=== PATIENT | male | born 1985 | race Caucasian/White ===

== ENCOUNTER 2017-11-06 20:32 | Emergency (ER) | payer SELFPAY ==
[2017-11-06] MEDS ORDERED: THIAMINE HCL(*) 200 MG/2 ML IN 100 MG, FOLIC ACID(*) 50 MG/10 ML INJ 1 MG, MULTIVITAMIN... IV ONE (20:48)
[2017-11-06 21:05] VITALS: BP 142/96
[2017-11-06 21:08] LABS: PLATELET COUNT, AUTOMATED 269 K/uL (150-450)
--- NOTE | 2017-11-06 22:13 | ER Report ---
History and Physical Time Seen By MD: 21:00 Hx. of Stated Complaint: "I JUST WANT YOU TO KEEP ME ALIVE". WOULD LIKE TO DETOX FROM ALCOHOL. HPI/ROS Daily drinker since age 26. Drinks about 12 beers a day. Sober for 5 days at a time only. Never had withdrawl before. Usually does self detox. Has a family history of substance abuse and mental health issues. Denies illicit drug use. No SI/HI Remainder of the 14 system rev: Yes Allergies: Coded Allergies: Penicillins (Verified Allergy, Unknown, 11/06/17) Home Meds No Active Prescriptions or Reported Meds Reviewed Nurses Notes: Yes Old Medical Records Reviewed: Yes Hx Smoking: Yes Smoking Status: Current: Every Day Smoker Hx Alcohol Use: Yes Constitutional Vital Sign - Last 24 Hours 11/06/17 11/06/17 20:35 21:05 Temp 97.9 Pulse 93 Resp 18 B/P (MAP) 159/107 142/96 (111) Pulse Ox 97 O2 Delivery Room Air Physical Exam General Appearance: The patient is alert, has no immediate need for airway protection and no current signs of toxicity. Eyes: Pupils equal and round no injection. Respiratory: Chest is non tender, lungs are clear to auscultation. Cardiac: regular rate and rhythm Gastrointestinal: Abdomen is soft and non tender, no masses, bowel sounds normal. Skin: No rashes or lesions. DIFFERENTIAL DIAGNOSIS: After history and physical exam differential diagnosis was considered for intoxication, overdose, alcohol withdrawl Medical Decision Making Data Points Result Diagram: 11/06/17205411/06/172054 Laboratory Hematology Test 11/06/17 20:49 11/06/17 20:55 Urine Color Yellow Urine Clarity Clear Urine pH 7.0 pH (4.8-9.5) Urine Specific [place] 1.006 Urine Protein 30 mg/dL (NEGATIVE) Urine Glucose (UA) Negative mg/dL (NEGATIVE) Urine Ketones Negative mg/dL (NEGATIVE) Urine Blood Small (NEGATIVE) Urine Nitrite Negative (NEGATIVE) Urine Bilirubin Negative (NEGATIVE) Urine Urobilinogen Negative mg/dL (0.2-1.9) Urine Leukocyte Esterase Negative (NEGATIVE) Urine RBC 1 /HPF (0-2/HPF) Urine WBC <1 /HPF (0-5/HPF) Urine Squamous Epithelial Cells None /LPF (</=FEW) Urine Bacteria Negative /HPF (NONE-FEW) Urine Mucus None /HPF (NONE-FEW) Urine Opiates Screen Negative Urine Barbiturates Screen Negative Ur Tricyclic Antidepressants Screen Negative Urine Phencyclidine Screen Negative Urine Amphetamines Screen Negative Urine Benzodiazepines Screen Negative Urine Cocaine Screen Negative Urine Cannabinoids Screen Positive Red Blood Count 5.33 M/uL (4.00-5.60) Mean Corpuscular Volume 93.7 fL (80.0-96.0) Mean Corpuscular Hemoglobin 33.0 pg (26.0-33.0) Mean Corpuscular Hemoglobin Concent 35.3 g/dL (32.0-36.0) Red Cell Distribution Width 12.9 % (11.5-14.5) Mean Platelet Volume 7.5 fL (7.2-11.1) Neutrophils (%) (Auto) 67.7 % (39.4-72.5) Lymphocytes (%) (Auto) 20.9 % (17.6-49.6) Monocytes (%) (Auto) 10.1 % (4.1-12.4) Eosinophils (%) (Auto) 0.2 % (0.4-6.7) Basophils (%) (Auto) 1.1 % (0.3-1.4) Nucleated RBC Relative Count (auto) 0.0 /100WBC Neutrophils # (Auto) 6.2 K/uL (2.0-7.4) Lymphocytes # (Auto) 1.9 K/uL (1.3-3.6) Monocytes # (Auto) 0.9 K/uL (0.3-1.0) Eosinophils # (Auto) 0.0 K/uL (0.0-0.5) Basophils # (Auto) 0.1 K/uL (0.0-0.1) Nucleated RBC Absolute Count (auto) 0.00 K/uL Sodium Level 138 mmol/L (137-145) Potassium Level 3.7 mmol/L (3.5-5.0) Chloride Level 95 mmol/L (98-107) Carbon Dioxide Level 27 mmol/L (22-30) Blood Urea Nitrogen 5 mg/dl (9-21) Creatinine 0.70 mg/dl (0.66-1.25) Glomerular Filtration Rate Calc > 60.0 Random Glucose 103 mg/dl (75-110) Calcium Level 10.2 mg/dl (8.4-10.2) Magnesium Level 2.1 mg/dl (1.7-2.2) Total Bilirubin 0.7 mg/dl (0.2-1.3) Aspartate Amino Transf (AST/SGOT) 35 U/L (0-35) Alanine Aminotransferase (ALT/SGPT) 29 U/L (0-56) Alkaline Phosphatase 69 U/L (0-126) Total Protein 8.6 gm/dl (6.3-8.2) Albumin 5.0 g/dl (3.5-5.0) Salicylates Level < 10 mg/L Salicylate Last Dose Date unknown Acetaminophen Level < 10 ug/ml Serum Alcohol 135 mg/dl Chemistry Test 11/06/17 20:49 11/06/17 20:55 Urine Color Yellow Urine Clarity Clear Urine pH 7.0 pH (4.8-9.5) Urine Specific [place] 1.006 Urine Protein 30 mg/dL (NEGATIVE) Urine Glucose (UA) Negative mg/dL (NEGATIVE) Urine Ketones Negative mg/dL (NEGATIVE) Urine Blood Small (NEGATIVE) Urine Nitrite Negative (NEGATIVE) Urine Bilirubin Negative (NEGATIVE) Urine Urobilinogen Negative mg/dL (0.2-1.9) Urine Leukocyte Esterase Negative (NEGATIVE) Urine RBC 1 /HPF (0-2/HPF) Urine WBC <1 /HPF (0-5/HPF) Urine Squamous Epithelial Cells None /LPF (</=FEW) Urine Bacteria Negative /HPF (NONE-FEW) Urine Mucus None /HPF (NONE-FEW) Urine Opiates Screen Negative Urine Barbiturates Screen Negative Ur Tricyclic Antidepressants Screen Negative Urine Phencyclidine Screen Negative Urine Amphetamines Screen Negative Urine Benzodiazepines Screen Negative Urine Cocaine Screen Negative Urine Cannabinoids Screen Positive White Blood Count 9.2 k/uL (4.5-11.0) Red Blood Count 5.33 M/uL (4.00-5.60) Hemoglobin 17.6 g/dL (14.0-18.0) Hematocrit 50.0 % (42.0-52.0) Mean Corpuscular Volume 93.7 fL (80.0-96.0) Mean Corpuscular Hemoglobin 33.0 pg (26.0-33.0) Mean Corpuscular Hemoglobin Concent 35.3 g/dL (32.0-36.0) Red Cell Distribution Width 12.9 % (11.5-14.5) Platelet Count 269 K/uL (150-450) Mean Platelet Volume 7.5 fL (7.2-11.1) Neutrophils (%) (Auto) 67.7 % (39.4-72.5) Lymphocytes (%) (Auto) 20.9 % (17.6-49.6) Monocytes (%) (Auto) 10.1 % (4.1-12.4) Eosinophils (%) (Auto) 0.2 % (0.4-6.7) Basophils (%) (Auto) 1.1 % (0.3-1.4) Nucleated RBC Relative Count (auto) 0.0 /100WBC Neutrophils # (Auto) 6.2 K/uL (2.0-7.4) Lymphocytes # (Auto) 1.9 K/uL (1.3-3.6) Monocytes # (Auto) 0.9 K/uL (0.3-1.0) Eosinophils # (Auto) 0.0 K/uL (0.0-0.5) Basophils # (Auto) 0.1 K/uL (0.0-0.1) Nucleated RBC Absolute Count (auto) 0.00 K/uL Glomerular Filtration Rate Calc > 60.0 Calcium Level 10.2 mg/dl (8.4-10.2) Magnesium Level 2.1 mg/dl (1.7-2.2) Total Bilirubin 0.7 mg/dl (0.2-1.3) Aspartate Amino Transf (AST/SGOT) 35 U/L (0-35) Alanine Aminotransferase (ALT/SGPT) 29 U/L (0-56) Alkaline Phosphatase 69 U/L (0-126) Total Protein 8.6 gm/dl (6.3-8.2) Albumin 5.0 g/dl (3.5-5.0) Salicylates Level < 10 mg/L Salicylate Last Dose Date unknown Acetaminophen Level < 10 ug/ml Serum Alcohol 135 mg/dl Toxicology Test 11/06/17 20:49 11/06/17 20:55 Urine Opiates Screen Negative Urine Barbiturates Screen Negative Ur Tricyclic Antidepressants Screen Negative Urine Phencyclidine Screen Negative Urine Amphetamines Screen Negative Urine Benzodiazepines Screen Negative Urine Cocaine Screen Negative Urine Cannabinoids Screen Positive Salicylates Level < 10 mg/L Salicylate Last Dose Date unknown Acetaminophen Level < 10 ug/ml Serum Alcohol 135 mg/dl Urinalysis Test 11/06/17 20:49 Urine Color Yellow Urine Clarity Clear Urine pH 7.0 pH (4.8-9.5) Urine Specific [place] 1.006 Urine Protein 30 mg/dL (NEGATIVE) Urine Glucose (UA) Negative mg/dL (NEGATIVE) Urine Ketones Negative mg/dL (NEGATIVE) Urine Blood Small (NEGATIVE) Urine Nitrite Negative (NEGATIVE) Urine Bilirubin Negative (NEGATIVE) Urine Urobilinogen Negative mg/dL (0.2-1.9) Urine Leukocyte Esterase Negative (NEGATIVE) Urine RBC 1 /HPF (0-2/HPF) Urine WBC <1 /HPF (0-5/HPF) Urine Squamous Epithelial Cells None /LPF (</=FEW) Urine Bacteria Negative /HPF (NONE-FEW) Urine Mucus None /HPF (NONE-FEW) ED Course/Re-evaluation ED Course Self presents to the emergency Department in need of detox for alcohol. Daily drinker. Last drank prior to arrival in the ED. Has tried to self detox previously. No current tremors or impending withdrawl. Denies SI/HI. Speoke with Dr. Dumas who will admit the patient. Decision to Disposition Date: Nov 06, 2017 Decision to Disposition Time: 22:13 Depart Departure Latest Vital Signs Vital Signs Date Time Temp Pulse Resp B/P (MAP) Pulse Ox O2 Delivery O2 Flow Rate FiO2 11/06/17 21:05 142/96 (111) 11/06/17 20:35 97.9 93 18 97 Room Air Impression: Primary Impression: Alcohol abuse Condition: Improved Disposition: Admitted from ER New Scripts No Active Prescriptions or Reported Meds MONICA JOAQUIN MD Nov 06, 2017 22:13
== END 2017-11-06 22:28 ==
LOC: ER 21:21
DX: F10.120 Alcohol abuse with intoxication, uncomplicated (principal); Y90.6 Blood alcohol level of 120-199 mg/100 ml
CPT/HCPCS: 80305; 80320; 80329; 81001; 83735; 84443; 85025; 96365; 96366; 99285; J3411; J3475; J7030; 82040; 82247; 82310; 82374; 82435; 82565; 82947; 84075; 84132; 84155; 84295; 84450; 84460; 84520

== ENCOUNTER 2017-11-06 22:05 | Inpatient (IN) | payer SELFPAY ==
[~2017-11-06] VITALS: Ht 190.5 cm; Wt 70.3 kg
[2017-11-06] MEDS ORDERED: MAG HYD/AL HYD/SIMETH 30ML UDC PO PRN (22:15)
[2017-11-06 23:00] VITALS: BP 140/98
[2017-11-06] MEDS: DIAZEPAM 10 MG TAB PO PRN (23:06)
[2017-11-07] MEDS: DIAZEPAM 10 MG TAB PO PRN ×4 (00:12→22:48)
[2017-11-07 04:31] VITALS: BP 123/91
[2017-11-07] MEDS: FOLIC ACID 1 MG TAB PO SCH (08:32)
[2017-11-07] MEDS: MULTIVITAMINS TAB PO SCH (08:32)
[2017-11-07] MEDS: THIAMINE HCL 100 MG TAB PO SCH (08:32)
[2017-11-07 09:00] VITALS: BP 121/93
[2017-11-07] MEDS ORDERED: NICOTINE CARTRIDGE 1 EA PO PRN (09:05)
[2017-11-07 12:40] VITALS: BP 121/92
[2017-11-07] MEDS: NICOTINE INH SYSTEM 10 MG/INH INH PRN ×2 (13:39→16:40)
[2017-11-07 16:30] VITALS: BP 134/90
--- NOTE | 2017-11-07 17:50 | HISTORY AND PHYSICAL ---
DATE OF ADMISSION: November 06, 2017 Patient was seen at approximately 0800 hours on November 07, 2017 concerning this dictation. PRESENTING PROBLEM/CHIEF COMPLAINT Patient presenting with alcohol to the ER on a voluntary basis for help with alcohol withdrawal. HISTORY OF PRESENT ILLNESS This is a pleasant 32-year-old male interacting well with this provider and treatment team staff. Patient under the influence of diazepam, given for alcohol withdrawal throughout the night. When asked why patient wants to quit drinking now, patient reports "I am afraid it is going to kill me." Patient reports drinking mostly beer in large quantities for the last several years on a daily basis. Patient has experienced tremors in the past. These seem to fall short of delirium when trying to quit. Patient denies a history of seizures. Patient states that specific stressors include "lots of things related to alcohol." Patient reports two relatively recent breakups which have been hard for him, but patient does not seem overly concerned about. Patient denies any other symptoms of psychiatric concern other than ongoing problems with alcohol. MENTAL HEALTH HISTORY Patient has never been an inpatient in a psychiatric unit before. He has never attended rehab. Patient has been to in the past, is not going now. He has no other formal outpatient treatment and patient has no history of suicidal ideation or attempt. FAMILY PSYCHIATRIC HISTORY Patient reports alcoholism on his father's side "all the way down the line." Patient reports his great grandfather, believed to be on his father's side, did take his own life before the patient was born. Patient denies any other known psychiatric illness in the family. PAST MEDICAL HISTORY Patient allergic to PENICILLIN. He has had some structural damage in a machinery accident involving his left first digit. Patient not on any medications and has no other medical complaints. SOCIAL HISTORY Patient was born in [place], raised in [facility]. Patient's parents were together at the time of his . They when he was approximately 6 years old. Patient has one full sibling brother and one half brother. Patient reports he does not get along with his stepfather and he does believe there was some neglect growing up. Denies any outright physical or sexual abuse. Patient did graduate from high school, has a four year degree in [employer]. Patient has never , has no children. He has no significant other currently. Patient lives with his brother. 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 LEGAL HISTORY Patient has legal history significant for DUI times one. SUBSTANCE ABUSE HISTORY History does include cannabis. 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 Denies any other substance abuse history. PHYSICAL EXAMINATION GENERAL: Please see emergency room note. Notable for a cooperative 32-year- old male, initially cursing, but patient redirectable. VITAL SIGNS: At the time of admission, temperature 97.9, pulse 93, respiratory rate 18, blood pressure 159/107, pulse oximetry 97 on room air. LABORATORY DATA CBC unremarkable. CMP overall unremarkable as well. TSH 1.61. Urinalysis did show small urine blood and protein, and urine protein present, otherwise unremarkable. Toxicology screen positive for cannabinoids, with a serum alcohol level of 135 at the time of admission. MENTAL STATUS EXAMINATION GENERAL APPEARANCE, BEHAVIOR AND ATTITUDE: This is a somewhat obtunded- appearing 32-year-old male, being treated with diazepam throughout the night for alcohol withdrawal. Patient cooperative, making [id number] eye contact. No bizarre mannerisms or tics. SPEECH: Slurred slightly. MOOD: Described as frustrated over alcohol use disorder and feeling physically crappy. AFFECT: Mildly constructed and mood congruent. THOUGHT PROCESSES: Logical, goal directed. Patient continuing to verbalize a desire to stop alcohol use. No loose associations or flight of ideas. THOUGHT CONTENT: Free of auditory or visual hallucinations, ideas of reference , thought broadcastings, delusions, obsessions, compulsions. Patient adamantly denying suicidal or homicidal ideation. SENSORIUM: Clear. COGNITION: Alert and oriented to person, place, time and situation. MEMORY: Immediate, recent and remote estimated intact. INTELLIGENCE: Average based on interview. INSIGHT AND JUDGMENT: Considered grossly intact in the absence of alcohol use. Patient did present voluntarily for alcohol treatment. ASSESSMENT This is a pleasant 32-year-old male who has had minimal exposure to alcohol treatment throughout his life of addiction to alcohol. Patient using cannabis as well. Will encourage abstinence from both substances. Will treat alcohol withdrawal with diazepam per [facility] protocol and continue to evaluate. DIAGNOSES PER DSM-V Alcohol intoxication. Alcohol withdrawal. Alcohol use disorder, severe. Cannabis use disorder, moderate. Social stressors related to alcohol use disorder. PLAN 1. Admit to the unit. 2. Necessary precautions to be implemented. 3. Patient will participate in individual and group therapy. 4. Medications will be administered, titrated accordingly. 5. Collateral information to be obtained as necessary. 6. Estimated length of stay three to five days. MTDD
[2017-11-07 20:22] VITALS: BP 118/82
[2017-11-08 06:18] VITALS: BP 120/90
[2017-11-08] MEDS: FOLIC ACID 1 MG TAB PO SCH (08:02)
[2017-11-08] MEDS: MULTIVITAMINS TAB PO SCH (08:02)
[2017-11-08] MEDS: THIAMINE HCL 100 MG TAB PO SCH (08:02)
[2017-11-08 10:30] VITALS: BP 108/62
[2017-11-08] MEDS: NICOTINE INH SYSTEM 10 MG/INH INH PRN ×4 (10:35→21:13)
--- NOTE | 2017-11-08 12:27 | BHS Progress Note ---
[facility] - Subjective Progress Notes Subjective Patient continues to improve, and alcohol withdrawal is nearing completion. Will have trial of trazodone tonight, and prepare for likely discharge tomorrow evening. Will have AA visit today, and set up outpatient appointments. Suicidal Ideation: None Homicidal Ideation: None [facility] - Objective Physical Exam Vital Signs Vital Signs Date Time Temp Pulse Resp B/P (MAP) Pulse Ox O2 Delivery O2 Flow Rate FiO2 11/08/17 10:30 99.0 82 16 108/62 (77) 97 Room Air Muscle Strength and Tone: WNL Gait and Station: Steady [facility] Medications Reviewed: Side Effects, Benefits of Medication, Risks Allergies Reviewed: Yes Mental Status Exam General Appearance: Casual, Well Groomed, Good Eye Contact, Cooperative, Polite , Good Interaction, No Tearful, No Psychomotor Agitation, No Psychomotor Retardation, No Bizarre Mannerisms, No Tics Speech: Clear, Spontaneous, Normal Rate, Normal Rhythm, Normal Volume, Normal Tone, No Garbled, No Rambling, No Inappropriate Mood: Euthymic Affect: Full and Appropriate, Calm, No Flat, No Withdrawn, No Tearful, No Anxious, No Agitated Thought Process: Organized, Logical, Goal Directed, No Loose Associations, No Flight of Ideas Thought Content: No Suicidal Ideation, No Homicidal Ideation, No Delusions, No Auditory Halllucinations, No Visual Hallucinations, No Thought Broadcasting, No Ideas of Reference, No Obsessions, No Compulsions Sensorium: Clear Cognition: Alert & Oriented-Person, Alert & Oriented-Place, Alert & Oriented- Time, Ldvkw-Vofebruh-Thgmujuej Memory: Immediate, Recent, Remote Intelligence: Average Insight Judgment: Fair (in absence of alcohol) [facility] Assessment and Plan Eydn-um-Lssj Encounter Date: Nov 08, 2017 Iidw-io-Cmdt Encounter Time: 11:00 [facility] Plan: Necessary Precautions, Individual/Group Therapy, Admin/Titrate Meds, Educate Patient Tobacco Medications: Started Multpiple Antipsychotics Used: No Problems: (1) Alcohol use disorder, severe, in controlled environment Status: Chronic (2) Alcohol withdrawal Condition 1. start trazodone 100mg QHS. 2. likely discharge to home tomorrow afternoon. Problem Qualifiers (1) Alcohol withdrawal: Complication of substance-induced condition: uncomplicated Qualified Codes: F10.230 - Alcohol dependence with withdrawal, uncomplicated MARISA WADE MD Nov 08, 2017 12:27
[2017-11-08 14:30] VITALS: BP 108/64
[2017-11-08 18:30] VITALS: BP 118/68
[2017-11-08] MEDS ORDERED: traZODone HCL 50 MG TAB PO SCH (21:00)
[2017-11-08 21:19] VITALS: BP 123/96
[2017-11-09] MEDS: THIAMINE HCL 100 MG TAB PO SCH (08:16)
[2017-11-09] MEDS: FOLIC ACID 1 MG TAB PO SCH (08:16)
[2017-11-09] MEDS: MULTIVITAMINS TAB PO SCH (08:16)
[2017-11-09] MEDS ORDERED: NIC10R INH (09:28)
[2017-11-09] MEDS ORDERED: TRAZ-163 PO (09:29)
--- NOTE | 2017-11-09 09:30 | BHS Progress Note ---
S - Subjective Progress Notes Subjective "I would like to get set up with a counselor to talk with a couple times a week. 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 I'm ready to get my life back on track." Desires to stay sober, reports father lives in half way house, father with history of 9 DUI'S, fearful of drinking again DUI 2016 Denies urge to drink, "I'm terrified of it." Suicidal Ideation: None Homicidal Ideation: None S - Objective Physical Exam Vital Signs Vital Signs Date Time Temp Pulse Resp B/P (MAP) Pulse Ox O2 Delivery O2 Flow Rate FiO2 11/08/17 21:19 97.9 83 123/96 (105) 96 Room Air 11/08/17 18:30 16 Allergies Coded Allergies Penicillins (Verified Allergy, Unknown, 11/06/17) Muscle Strength and Tone: WNL Gait and Station: Steady [facility] Medications Reviewed: Side Effects, Benefits of Medication, Risks Allergies Reviewed: Yes Mental Status Exam General Appearance: Casual, Well Groomed, Good Eye Contact, Cooperative, Polite , Good Interaction, No Tearful, No Psychomotor Agitation, No Psychomotor Retardation, No Bizarre Mannerisms, No Tics Speech: Clear, Spontaneous, Normal Rate, Normal Rhythm, Normal Volume, Normal Tone, No Garbled, No Rambling, No Inappropriate Mood: Euthymic Affect: Full and Appropriate, Calm, No Flat, No Withdrawn, No Tearful, No Anxious, No Agitated Thought Process: Organized, Logical, Goal Directed, No Loose Associations, No Flight of Ideas Thought Content: No Suicidal Ideation, No Homicidal Ideation, No Delusions, No Auditory Halllucinations, No Visual Hallucinations, No Thought Broadcasting, No Ideas of Reference, No Obsessions, No Compulsions Sensorium: Clear Cognition: Alert & Oriented-Person, Alert & Oriented-Place, Alert & Oriented- Time, Wpdrf-Assblsph-Kctrutmih Memory: Immediate, Recent, Remote Intelligence: Average Insight Judgment: Fair (in absence of alcohol) Lab Vital Signs Date Time Temp Pulse Resp B/P (MAP) Pulse Ox O2 Delivery O2 Flow Rate FiO2 11/08/17 21:19 97.9 83 123/96 (105) 96 Room Air 11/08/17 18:30 16 Allergies Coded Allergies Penicillins (Verified Allergy, Unknown, 11/06/17) [facility] Assessment and Plan Qidw-ib-Enkq Encounter Date: Nov 09, 2017 Vtbi-av-Trar Encounter Time: 09:45 [facility] Plan: Necessary Precautions, Individual/Group Therapy, Admin/Titrate Meds, Educate Patient Tobacco Medications: Started Multpiple Antipsychotics Used: Yes Problems: (1) Alcohol use disorder, severe, in controlled environment Status: Chronic (2) Alcohol withdrawal Condition Discharge to home Discharge medications per medication reconciliation Abstain from etoh/illicit substances Crisis line # provided, encourage use for worsening symptoms Encourage individual therapy substance abuse related Return to emergency room for suicidal ideation Problem Qualifiers (1) Alcohol withdrawal: Complication of substance-induced condition: uncomplicated Qualified Codes: F10.230 - Alcohol dependence with withdrawal, uncomplicated PAM ZAMORA NP Nov 09, 2017 09:30
--- NOTE | 2017-11-09 15:25 | DISCHARGE SUMMARY ---
DATE OF ADMISSION: November 06, 2017 DATE OF DISCHARGE: November 09, 2017 FINAL DIAGNOSES PER DSM-V 1. Alcohol use disorder, severe. 2. Alcohol withdrawal, considered complete. 3. Social stressors related to alcohol use disorder. REASON FOR ADMISSION/BRIEF HISTORY This is a 32-year-old, single, male who was admitted on a voluntary basis for alcohol detoxification. He reports that he has been drinking large quantities of alcohol, up to 12+ beers as well as hard liquor daily for the last several years. He denied history of alcohol withdrawal seizures in the past. He had had recent stress of two relationship breakups as well as concerns over his alcohol use. He had never been an inpatient on a psychiatric unit in the past, never attended any residential rehabs. He reports he has been to AA meetings in the past, but is currently not engaged with them. He has had no previous individual or group therapy for substance abuse in the past. He reports that he is currently employed, and his coworkers also use alcohol in excess. He has previously had one DUI in the past and had requested a voluntary admission for alcohol use disorder and detox. The patient was then transferred to Behavioral Health Unit for further evaluation and treatment and treated with [facility] protocol for alcohol withdrawal symptoms. The patient's alcohol withdrawal was considered complete at the time of discharge interview, and he is agreeable with ongoing outpatient care targeting his substance abuse. EXAMINATION Please see emergency room notes for physical exam. VITAL SIGNS: At time of admission including temperature of 98.2, pulse of 70, respiratory rate 16, blood pressure 118/82, pulse oximetry 93% on room air. Vital signs at time of discharge include temperature of 97.9, pulse of 83, respiratory rate 16, blood pressure 123/96, pulse oximetry 96% on room air. LABORATORY DATA CBC within normal limits. Chemistry panel within normal limits. Chloride slightly low, 95. BUN low at 5. Total protein elevated, 8.6. Thyroid stimulating hormone 1.61. Urine screen within normal limits. Toxicology including salicylate and acetominophen levels less than 10. Serum alcohol level 135. Urine screen negative for opiates, barbiturates, tricyclics, phencyclidine, amphetamines, benzodiazepines, and cocaine. Positive for cannabinoids. MENTAL STATUS EXAMINATION GENERAL APPEARANCE, BEHAVIOR, AND ATTITUDE: This is a calm, cooperative, 32- year-old male interacting well with team members. At time of discharge interview, no periods of tearfulness. No psychomotor agitation or retardation. Alcohol withdrawal symptoms absent. Alcohol withdrawal considered complete. SPEECH: Regular rate, rhythm, volume, and tone. MOOD: Euthymic. AFFECT: Minimally constricted, mood congruent. THOUGHT PROCESSES: Logical, goal directed. No loose associations or flight of ideas. THOUGHT CONTENT: Free of auditory or visual hallucinations, ideas of reference , thought broadcasting, delusions, obsessions, and compulsions. The patient denying suicidal or homicidal ideations. SENSORIUM: Clear. COGNITION: Alert and oriented to person, place, time, and situation. MEMORY: Immediate, recent, and remote estimated intact. INTELLIGENCE: Average based on interview. INSIGHT AND JUDGMENT: Considered improved. He is appropriate and agreeable with outpatient substance abuse treatment. CONSULTATIONS None. TREATMENT The patient participated in individual and group therapy. He was initiated on [facility] protocol for alcohol withdrawal symptoms. His alcohol withdrawal is now considered complete. He was given resources for outpatient individual and/or group therapy as well as intensive outpatient options. AA is encouraged as well as ongoing substance abuse treatment. CONDITION OF PATIENT ON DISCHARGE Stable. He is considered a minimal risk to himself or others. DISCHARGE MEDICATIONS 1. Nicotine replacement, Nicotrol inhaler as needed. 2. Trazodone 100 mg one p.o. at bedtime p.r.n. insomnia. The risks, benefits, and alternatives of the medication were reviewed with the patient prior to discharge. DISPOSITION This patient is discharged to home. He is to abstain from alcohol and all illicit drugs. He is to take medications only as prescribed. The crisis line number is given, encouraged use for worsening symptoms. AA meetings as well as individual and/or group therapy for substance abuse treatment are encouraged with resources given prior to discharge. The patient is to return to the Emergency Room for worsening symptoms or suicidal or homicidal ideation. He verbalizes understanding of this process. The patient is competent and agreeable with the above discharge plan. MARIA ISABEL
== END 2017-11-09 10:05 | disposition home or self-care (01) | DRG 897 ==
LOC: BHS 22:05
PROVIDERS: ADMIT Psychiatry & Neurology Psychiatry; ATTEND Psychiatry & Neurology Psychiatry
DX: F10.230 Alcohol dependence with withdrawal, uncomplicated (principal); F12.10 Cannabis abuse, uncomplicated; Y90.6 Blood alcohol level of 120-199 mg/100 ml; Z81.1 Family history of alcohol abuse and dependence; Z81.8 Family history of other mental and behavioral disorders; Z88.0 Allergy status to penicillin